=== PATIENT | female | born 1950 | race Caucasian/White ===

== ENCOUNTER 2016-12-04 18:43 | Inpatient (IN) | payer OTHER, MEDICARE ==
[~2016-12-04] VITALS: Ht 162.6 cm; Wt 79.3 kg
[~2016-12-04 18:43] MED LIST: ALPRAZOLAM0.5 MG PO; CETI10TA18 PO; CITA40TA PO; ERGO400C PO; SIMV40TA5 PO
[2016-12-04 19:12] VITALS: BP 127/81; PULSE 103; RESP 16; O2SAT 97
[2016-12-04] MEDS ORDERED: 0.9% Sodium Chloride 1,000 ML IV ONE (19:47)
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
[2016-12-04] MEDS ORDERED: Ondansetron 2 mg/mL 2 mL Inj IVPUSH ONE (19:50)
[2016-12-04 20:36] LABS: BASOPHILS % (AUTO) 0.5 % (0-3); EOSINOPHILS % (AUTO) 2.6 % (0-5); MONOCYTES % (AUTO) 8.5 % (4-12); Mean Corpuscular Hemoglobin 30.4 pg (27.0-35.0); Mean Corpuscular Volume 92.2 fL (81-100); NEUTROPHILS % (AUTO) 49.3 % (40-74); Platelet Count 293 bil/L (150-400)
[2016-12-04 20:49] LABS: INR 0.95 ratio
[2016-12-04 21:10] VITALS: BP 116/92; PULSE 90; RESP 20; O2SAT 96
[2016-12-04 22:40] VITALS: BP 99/50; PULSE 87; RESP 20; O2SAT 97
[2016-12-04] MEDS ORDERED: Ondansetron 2 mg/mL 2 mL Inj IVPUSH PRN (23:05)
[2016-12-04] MEDS ORDERED: Alum-Mag Hydrox-Simeth 30 mL Suspension PO PRN (23:05)
[2016-12-04 23:35] VITALS: BP 109/86; PULSE 100
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
[2016-12-05] MEDS ORDERED: Alum-Mag Hydrox-Simeth 30 mL Suspension PO PRN (00:25)
[2016-12-05] MEDS ORDERED: Polyethylene Glycol (PEG) 17 Gm Powder PO PRN (00:25)
[2016-12-05] MEDS ORDERED: Insulin GLARgine 100 Unit/mL Syringe SUBQ ONE (00:25)
[2016-12-05 01:12] VITALS: BP 115/73; PULSE 71; RESP 20; O2SAT 94
[2016-12-05] MEDS: Ondansetron 2 mg/mL 2 mL Inj IVPUSH PRN ×2 (01:22→04:21)
[2016-12-05] MEDS: 0.9% Sodium Chloride 1,000 ML IV SCH ×3 (01:24→22:07)
[2016-12-05] MEDS: Heparin 5,000 Unit/mL Inj SUBQ SCH ×3 (01:26→18:28)
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
[2016-12-05 02:06] LABS: APPEARANCE,URINE CLEAR (CLEAR,HAZY); COLOR,URINE YELLOW (YELLOW); OCCULT BLOOD,URINE TRACE (NEGATIVE); PH,URINE 5.5 (5.0-8.0); UROBILINOGEN,URINE NORMAL (NORMAL)
--- NOTE | 2016-12-05 02:17 | NUR ---
Admit Pt alert and oriented x3. Able to answer questions and provide H&P. Repeat K was 3.9. made aware of not giving Lantus and D50 for potassium reversal order. Morphine given for pain with effectiveness noted. Zofran for nausea. Pt aware of npo and few ice chips for diet at this time. Addendum: 12/05/16 at 0409 by RICHMOND PHELPS RN Med rec not done. Pt unsure of some of her Meds name and doses.
--- NOTE | 2016-12-05 04:09 | NUR ---
Pain Pt c/o abd pain and Morphine given with effectiveness. C/o nausea and Zofran given with effectiveness noted. No bm at this time. Oriented to self, place and time. Addendum: 12/05/16 at 0650 by RICHMOND PHELPS RN Anxiety Pt was anxious tonight. Xanax given as requested. Pt noted to get umana at times. Explained and provided education about the plan for tonight. Pt expressed frustration about her answering her H&P and not being able to look up her meds and info from the "[facility]". Answered pt's questions appropriately as possible.
[2016-12-05] MEDS: ALPRAZolam 0.25 mg Tablet PO SCH ×3 (04:19→19:56)
[2016-12-05 05:58] VITALS: BP 131/80; PULSE 96; RESP 19; O2SAT 96
[2016-12-05 06:40] LABS: BASOPHILS % (AUTO) 0.4 % (0-3); EOSINOPHILS % (AUTO) 3.1 % (0-5); MONOCYTES % (AUTO) 6.9 % (4-12); Mean Corpuscular Hemoglobin 30.4 pg (27.0-35.0); Mean Corpuscular Volume 93.6 fL (81-100); NEUTROPHILS % (AUTO) 39.5 % (40-74); Platelet Count 272 bil/L (150-400)
[2016-12-05 10:16] VITALS: BP 119/79; PULSE 97; RESP 16; O2SAT 97
--- NOTE | 2016-12-05 10:33 | PCM.PNSURG ---
Subjective Date of Service: Dec 05, 2016 Date of Service: Dec 05, 2016 Visit Information: Reason for Visit Intussusception Date of Admission: Dec 05, 2016 at 00:28 Hospital Day #2 Subjective: Patient seen sitting up in bed, appears comfortable. She states that the pain in the abdomen is improved since yesterday, but still present. It is not constant, but is sharp and stabbing on an intermittent basis and located in the right upper quadrant. She states that she has not really eaten solid food since November 27 and is feeling hungry today. She is passing flatus and states that her last solid BM was 2 days ago. Some brice/green fluid came out of her rectum yesterday prior to the CT scan. No blood in her stools recently. She had some nausea without emesis last night which was resolved with Zofran. Objective Vital Sign- Last 8 Hours Date Time Temp Pulse Resp B/P Pulse Ox O2 Delivery O2 Flow Rate FiO2 12/05/16 05:58 36.4 96 19 131/80 96 Room Air Intake and Output- Last 8 Hour 12/05/16 Cumulative From/Thru 07:00 12/04/16 19:12 - 12/05/16 06:39 Intake Total 1000 ml Output Total 500 ml 500 ml Balance -500 ml 500 ml Intake IV Total 1000 ml Output Urine Total 500 ml 500 ml General: Alert, Oriented X3, Cooperative, No Acute Distress Lungs: Clear to Auscultation Heart: Regular Rate/Rhythm Abdomen: Soft, Non-distended, Other (tender to palpation in the right brandy- umbilical region. No rebound or guarding. No masses appreciated. No tympany) Extremities: Warm, Thigh&Calf Soft/Nontender Neuro: Normal Speech Catheters: None Result Diagram: 12/05/16 0605 12/05/16 06 Assessment & Plan Impression Primary diagnosis: Abdominal pain, unclear etiology. Question of intussusception on CT scan. Other diagnoses: Status post colonoscopy by Dr. Charles Vasquez June 2014 Status post upper endoscopy by Dr. Charles Vasquez January 2010 and October 2009 History of ERCP 03/31/[address] Jeff Leone [facility] in [place] History of Pedro-en-Y duodenojejunostomy and duodenotomy by Dr. Joshua Farrell 04/24/1999 at [facility] in [place] History of laparoscopic cholecystectomy with intraoperative cholangiogram by Dr. Joshua Farrell 02/12/1997 at [facility] in [place] Anxiety disorder with depression Osteoporosis Left hip arthralgia Bartholin's gland duct cyst Probable IBS Mitral regurgitation Mitral valve prolapse COPD Hyperlipidemia PTSD TMJ PAD Hypertension GERD Hyperplastic lymph node Status post total abdominal hysterectomy bilateral salpingo-oophorectomy Tobacco use daily Problems: Plan Discussed with Dr. James. Since pain is improving, we will allow her small sips of clear fluids today. If nausea returns or abdominal pain increases, we will resume nothing by mouth status and recommend repeat abdominal/pelvis CT scan. Records are found in [facility] detailing the operations by Dr. Joshua Farrell at [facility] in [place] in 1996 and 1998 and will be placed in her physical chart. History of Pedro-en-Y duodenojejunostomy and duodenotomy 04/24/1999 History of ERCP by Dr. Jeff Leone 03/31/1999 History of laparoscopic cholecystectomy with intraoperative cholangiogram VTE Prophylaxis: Sub-Q Heparin (Unfractionated) Resuscitation Status: CPR: Attempt Resuscitation (Only 3 days of intubation) Cornelia Rivera PA-C Dec 05, 2016 10:33
[2016-12-05] MEDS ORDERED: EZET10TA PO (10:37)
[2016-12-05] MEDS ORDERED: ALPR0.5T8 PO (10:37)
[2016-12-05] MEDS ORDERED: LISI1TAB7 PO (10:37)
[2016-12-05 14:17] VITALS: BP 110/74; PULSE 92; RESP 17; O2SAT 95
[2016-12-05 16:51] VITALS: BP 112/76; PULSE 85; RESP 18; O2SAT 98
--- NOTE | 2016-12-05 18:35 | NUR ---
PAIN Patient requested clarification of care, PA able to speak with her and answer questions. Anxiety levels absent after meeting. Patient requesting no pain medications as the ASE, i.e. headache, was worse than the pain. Patient denies pain at this time.
--- NOTE | 2016-12-05 19:32 | PCM.PNMED ---
Subjective Date of Service Dec 05, 2016 Subjective reports some flatus but no BM Exam Vital Signs Vital Sign - Last Date Time Temp Pulse Resp B/P Pulse Ox O2 Delivery O2 Flow Rate FiO2 12/05/16 16:51 36.8 85 18 112/76 98 Room Air Intake and Output 12/04/16 12/04/16 12/05/16 Cumulative From/Thru 15:00 23:00 07:00 12/04/16 19:12 - 12/05/16 06:39 Intake Total 1000 ml 1000 ml Output Total 500 ml 500 ml Balance 1000 ml -500 ml 500 ml IV Total 1000 ml 1000 ml Output Urine Total 500 ml 500 ml General: Alert, Cooperative, No Acute Distress Eyes: Scleral Anicteric Mouth: Mucous Membr Moist/[place] Neck: Supple Chest & Lungs: Chest Wall Normal, Clear to auscultation & percussion Cardiovascular: Regular Rate/Rhythm Abdomen: Non-tender, Soft, Other (decreased bowel tones) Extremities: No cyanosis/clubbing/edma bilat Neurological: Grossly Neurologically Intact, Normal Speech IVs and Medications Medications Reviewed: Medications were reviewed in detail Lab and Diagnostics Result Diagram: 12/05/1660412/05/16 0605 X-Rays, CTs and MRIs Date of Service: 12/04/16 1306 PROCEDURE: CT ABDOMEN AND PELVIS WITH CONTRAST ([facility]-[id number]) INDICATIONS: GENERALIZED ABDOMINAL PAIN TECHNIQUE: After the administration of oral and intravenous contrast, 5 mm thick sections acquired from the diaphragms to the symphysis. 5 mm thick coronal and sagittal reformats were performed. For radiation dose reduction, the following was used : automated exposure control, adjustment of mA and/or kV according to patient size. COMPARISON: [facility] [place] , CT, ABD/PELVIS W/CON ([facility]), 09/28/2009 , 15:08. FINDINGS: Image quality: Excellent. ABDOMEN: Lung bases: Lung bases are clear. Heart size is normal. Solid organs: Liver and spleen are normal in size and enhancement. Gallbladder is unremarkable. Biliary system is non-dilated. Pancreas enhances normally. No adrenal nodules. Kidneys are normal in size and enhancement, without hydronephrosis. Peritoneum and bowel: The stomach is decompressed. The duodenum and first portion of the jejunum demonstrate normal caliber and wall thickness. There is a small bowel-small bowel intussusception within the distal jejunum. No focal mass lesion is visualized. No perienteric fat stranding or free fluid. Contrast is present within the decompressed ileum. The appendix is not visualized; however there is no discrete right lower quadrant fluid or fat stranding to suggest acute appendicitis. The colon demonstrates normal caliber and wall thickness throughout. Nodes and vessels: No retroperitoneal or mesenteric adenopathy. Aorta and inferior vena cava are normal in caliber. There are scattered atheromatous calcifications throughout the aorta and iliac arteries bilaterally. Miscellaneous: No ventral hernias. PELVIS: Genitourinary: Bladder wall thickness is normal. Miscellaneous: No inguinal hernias or adenopathy. Bones: No suspicious bony lesions. No vertebral body compression fractures. IMPRESSION: 1. Small bowel-small bowel intussusception in the right lower quadrant. This may be the etiology of the patient's pain. Although this may be a transient incidental finding, intussusception in the adult population can also be associated with a bowel mass. Neoplasm cannot be excluded, and further characterization is warranted. There are no discrete findings to suggest ischemia; however laboratory values are recommended to exclude early bowel ischemia. This finding was discussed with Dr. Woods at 3:38 PM on 12/04/16. Dictated by: Esther Méndez M.D. on 12/04/2016 at 15:41 . Assessment & Plan 66 year-old female who has had years of abdominal discomfort and diarrhea with surgical intervention, who presented to the ED per her PCP's instructions after having a CT scan done earlier in the day (12/04/16) that showed intussusception. # Acute abdominal , present on admission. improving - CT report of 12/04/16: "small bowel intussusception in the right lower quadrant " - appreciate surgery consult. will f/u w/ recs - c/w supportive care - further advancing of diet per surgery recs - encourage ambulation # Hyperkalemia, present on admission, acute - Resolved - Likely reported incorrectly because repeat potassium was normal prior to giving any treatment Chronic, present on admission diagnoses: # CHO: 2008 - Mitral regurgitation, Mitral valve prolapse. Assume stable. # COPD, does not use oxygen. Assume stable # Panic disorder, stable - continue Xanax # Hyperlipidemia, - continue home medication when able to tolerate PO # PTSD, stable - continue Xanax # Hypertension, stable - c/w home meds # Tobacco use disorder, - nicotine patch Dispo: 1-2 days GI Prophylaxis: Proton Pump Inhibitor VTE Prophylaxis: Sub-Q Heparin (Unfractionated) Resuscitation Status: CPR: Attempt Resuscitation (Only 3 days of intubation) Time spent 25 min Richard Ortiz Dec 05, 2016 19:32
[2016-12-05 20:50] VITALS: BP 114/76; PULSE 56; RESP 17; O2SAT 97
[2016-12-06] MEDS: Heparin 5,000 Unit/mL Inj SUBQ SCH ×3 (01:50→16:52)
--- NOTE | 2016-12-06 02:28 | NUR ---
activity pt had stomach pain that she rated a 5/10 after eating her dinner. she stated that it was because she tried to eat the chocolate pudding and "chocolate has never agreed with me". she said it was only gas pain. she denied the need for pain medication. the upper right quadrant was very hyperactive when she was complaining of pain. upon reassessment she denied pain. she says she is tolerating fluids without any pain and would like to try and eat other things now. she ambulated in the hallway once before bed. she complained of an increase in anxiety she said she believed it was because she felt better now and was "antsy to go home". she took her HS xanax and it appeared effective. pt has slept most of the night without incident. care continues.
[2016-12-06] MEDS: ALPRAZolam 0.25 mg Tablet PO SCH ×2 (06:10→17:30)
[2016-12-06 06:18] VITALS: BP 124/78; PULSE 91; RESP 20; O2SAT 96
[2016-12-06] MEDS: 0.9% Sodium Chloride 1,000 ML IV SCH ×2 (06:24→16:24)
--- NOTE | 2016-12-06 06:59 | NUR ---
anxiety pt had severe anxiety this AM. she said she could not sit still and being "stuck here" made her want to run. she was taken for a walk around the unit but she said she needed her cigarettes and her xanax. pt was given her morning xanax and nicotine patch was applied. pt stated almost immediate relief. she is currently sleeping. hourly rounding continues.
[2016-12-06 07:36] LABS: BASOPHILS % (AUTO) 0.3 % (0-3); MONOCYTES % (AUTO) 6.7 % (4-12); Mean Corpuscular Hemoglobin 30.3 pg (27.0-35.0); Mean Corpuscular Volume 93.2 fL (81-100); NEUTROPHILS % (AUTO) 56.7 % (40-74); Platelet Count 262 bil/L (150-400)
[2016-12-06 09:45] VITALS: BP 111/69; PULSE 93; RESP 16; O2SAT 96
--- NOTE | 2016-12-06 11:58 | PCM.PNMED ---
Subjective Date of Service Dec 06, 2016 Subjective denies any new issues/complaints Exam Vital Signs Vital Sign - Last Date Time Temp Pulse Resp B/P Pulse Ox O2 Delivery O2 Flow Rate FiO2 12/06/16 09:45 36.6 93 16 111/69 96 Room Air Intake and Output 12/05/16 12/05/16 12/06/16 Cumulative From/Thru 15:00 23:00 07:00 12/04/16 19:12 - 12/06/16 06:43 Intake Total 2733 ml 1235 ml 4968 ml Output Total 1200 ml 1700 ml Balance 2733 ml 35 ml 3268 ml Intake Oral 1100 ml 400 ml 1500 ml IV Total 1633 ml 835 ml 3468 ml Output Urine Total 1200 ml 1700 ml # Voids 5 5 Exam General: Alert, Cooperative, No Acute Distress Eyes: Scleral Anicteric Mouth: Mucous Membr Moist/[place] Neck: Supple Chest & Lungs: Chest Wall Normal, Clear to auscultation bilat Cardiovascular: Regular Rate/Rhythm Abdomen: Non-tender, Soft Extremities: No cyanosis/clubbing/edema bilat Neurological: Grossly Neurologically Intact, Normal Speech IVs and Medications Medications Reviewed: Medications were reviewed in detail Lab and Diagnostics Result Diagram: 12/06/16 0720 12/06/16 0720 X-Rays, CTs and MRIs Date of Service: 12/04/16 1306 PROCEDURE: CT ABDOMEN AND PELVIS WITH CONTRAST ([id number]) INDICATIONS: GENERALIZED ABDOMINAL PAIN TECHNIQUE: After the administration of oral and intravenous contrast, 5 mm thick sections acquired from the diaphragms to the symphysis. 5 mm thick coronal and sagittal reformats were performed. For radiation dose reduction, the following was used : automated exposure control, adjustment of mA and/or kV according to patient size. COMPARISON: [facility] [place] , CT, ABD/PELVIS W/CON ([facility]), 09/28/2009 , 15:08. FINDINGS: Image quality: Excellent. ABDOMEN: Lung bases: Lung bases are clear. Heart size is normal. Solid organs: Liver and spleen are normal in size and enhancement. Gallbladder is unremarkable. Biliary system is non-dilated. Pancreas enhances normally. No adrenal nodules. Kidneys are normal in size and enhancement, without hydronephrosis. Peritoneum and bowel: The stomach is decompressed. The duodenum and first portion of the jejunum demonstrate normal caliber and wall thickness. There is a small bowel-small bowel intussusception within the distal jejunum. No focal mass lesion is visualized. No perienteric fat stranding or free fluid. Contrast is present within the decompressed ileum. The appendix is not visualized; however there is no discrete right lower quadrant fluid or fat stranding to suggest acute appendicitis. The colon demonstrates normal caliber and wall thickness throughout. Nodes and vessels: No retroperitoneal or mesenteric adenopathy. Aorta and inferior vena cava are normal in caliber. There are scattered atheromatous calcifications throughout the aorta and iliac arteries bilaterally. Miscellaneous: No ventral hernias. PELVIS: Genitourinary: Bladder wall thickness is normal. Miscellaneous: No inguinal hernias or adenopathy. Bones: No suspicious bony lesions. No vertebral body compression fractures. IMPRESSION: 1. Small bowel-small bowel intussusception in the right lower quadrant. This may be the etiology of the patient's pain. Although this may be a transient incidental finding, intussusception in the adult population can also be associated with a bowel mass. Neoplasm cannot be excluded, and further characterization is warranted. There are no discrete findings to suggest ischemia; however laboratory values are recommended to exclude early bowel ischemia. This finding was discussed with Dr. Woods at 3:38 PM on 12/04/16. Dictated by: Esther Méndez M.D. on 12/04/2016 at 15:41 . Assessment & Plan 66 year-old female who has had years of abdominal discomfort and diarrhea with surgical intervention, who presented to the ED per her PCP's instructions after having a CT scan done earlier in the day (12/04/16) that showed intussusception. # Acute abdominal , present on admission. improving - CT report of 12/04/16: "small bowel intussusception in the right lower quadrant " - appreciate surgery consult. will f/u w/ recs - f/u repeat CT abd today - c/w supportive care - further advancing of diet per surgery recs - encourage ambulation # Hyperkalemia, present on admission, acute - Resolved - Likely reported incorrectly because repeat potassium was normal prior to giving any treatment Chronic, present on admission diagnoses: # CHO: 2008 - Mitral regurgitation, Mitral valve prolapse. Assume stable. # COPD, does not use oxygen. Assume stable # Panic disorder, stable - continue Xanax # Hyperlipidemia, - continue home medication when able to tolerate PO # PTSD, stable - continue Xanax # Hypertension, stable - c/w home meds # Tobacco use disorder, - nicotine patch Dispo: 1-2 days pending GI issues noted above GI Prophylaxis: Proton Pump Inhibitor VTE Prophylaxis: Sub-Q Heparin (Unfractionated) Resuscitation Status: CPR: Attempt Resuscitation (Only 3 days of intubation) Time spent 25 min Richard Ortiz Dec 06, 2016 11:58
[2016-12-06 13:30] VITALS: BP 98/63; PULSE 94; RESP 18; O2SAT 94
--- NOTE | 2016-12-06 13:30 | DRSVH ---
PROCEDURE: CT ABDOMEN AND PELVIS WITH CONTRAST ([id number]) INDICATIONS: follow up CT for SB abnormality/intussussception TECHNIQUE: After the administration of oral and intravenous contrast, 5 mm thick sections acquired from the diap hragms to the symphysis. 5 mm thick coronal and sagittal reformats were performed. For radiation do se reduction, the following was used: automated exposure control, adjustment of mA and/or kV accordi ng to patient size. COMPARISON: [facility], CT, ABD/PELVIS W/CON ([facility]), 09/02/2009, 15:16. [facility], CT, CT ABD PELVIS W CON, 12/04/2016, 14:44. FINDINGS: Image quality: Excellent. ABDOMEN: Lung bases: Pulmonary scar is present at the lingular base unchanged from the study dated 09/02/09. T here is mild atelectasis in the dependent lungs bilaterally. No pleural effusion. Heart is normal siz e. There is a small hiatal hernia. Solid organs: Liver and spleen are normal in size and enhancement. Gallbladder is surgically absent . Biliary system is non-dilated. Pancreas enhances normally. No adrenal nodules. Kidneys are norm al in size and enhancement, without hydronephrosis. Peritoneum and bowel: Stomach, small bowel, and colon loops are normal in caliber and wall thickness . The appendix is nonvisualized. The small bowel-small bowel intussusception visualized on the compar michelle study dated 12/04/16 has resolved. There are no findings to suggest discrete bowel mass or mucosa l thickening. No pneumatosis or pneumoperitoneum. No free fluid or air. Nodes and vessels: No retroperitoneal or mesenteric adenopathy. Aorta and inferior vena cava are no rmal in caliber. There are scattered atheromatous calcifications throughout the aorta and iliac clair karolina bilaterally. Miscellaneous: No ventral hernias. PELVIS: Genitourinary: Bladder wall thickness is normal. Miscellaneous: No inguinal adenopathy. There are small bilateral fat-containing inguinal hernias. Bones: No suspicious bony lesions. No vertebral body compression fractures. IMPRESSION: Resolution of the small bowel-small bowel intussusception visualized on the study from . No findings to suggest residual inflammation, ischemia, or bowel mass. Dictated by: Esther Méndez M.D. on 12/06/2016 at 13:28 Approved by: Esther Méndez M.D. on 12/06/2016 at 13:28
--- NOTE | 2016-12-06 14:05 | PROG NOTE ---
[address] [address] PROGRESS NOTE PATIENT: JOEY GALLEGOS : 1950 MR#: [id number] ADMIT: 12/05/2016 JOB ID: [id number] DATE: 12/06/2016 The patients symptoms have largely resolved, but she is still a bit uncomfortable. I repeated her CT scan, which demonstrated resolution of the small bowel intussusception seen on the previous CT scans, confirming that this was a transient phenomenon and likely not the cause of her right-sided abdominal pain. My recommendation would be to advance her diet and let her be discharged with followup as an outpatient. She may want to pursue followup colonoscopy, though she did have a colonoscopy just a few years ago that was relatively unrevealing.
--- NOTE | 2016-12-06 18:42 | NUR ---
ANXIETY Patient expressing s/s of anxiety, however easily redirected with reassurance and actively listening. New orders to increase Xanax from 0.25mg to 0.50mg, patient stated "Oh, two pills, I'm going to pocket one of them for later." This nurse explained that medications are to be taken at time of administration, she is able to refuse any portion of the medication at that time, but not able to split dose over a span of time between administrations.
[2016-12-06 19:57] VITALS: BP 115/76; PULSE 94; RESP 16; O2SAT 95
[2016-12-07] MEDS: Heparin 5,000 Unit/mL Inj SUBQ SCH ×2 (00:31→08:35)
[2016-12-07] MEDS: 0.9% Sodium Chloride 1,000 ML IV SCH (02:24)
--- NOTE | 2016-12-07 04:24 | NUR ---
activity pt has denied any abdominal pain this shift. she has denied N/V/D. tolerating general diet. she has complained of common cold symptoms. she has a slight sore through and moist sounding cough. she was given warm tea which effectively reduced her throat irritation and coughing. pt is afebrile and VSS. care continues.
[2016-12-07 05:09] VITALS: BP_SYST 145; BP_SYST 150; BP_DIAS 79; BP_DIAS 80; PULSE 96; RESP 17; O2SAT 96
[2016-12-07] MEDS: ALPRAZolam 0.25 mg Tablet PO SCH (05:58)
[2016-12-07] MEDS ORDERED: NICO1PAT6 TOPICAL (08:09)
--- NOTE | 2016-12-07 08:12 | PCM.DIMED ---
Discharge Instructions Date of Service Dec 07, 2016 Dates of Hospitalization Dec 05, 2016 at 00:28 Discharge Diagnosis Discharge Diagnosis small bowel intussusception, spontaneously resolved Diet No restrictions Activity No restrictions Call your provider Other Patient Instructions You were hospitalized with abdominal pain, found to have telescoping of your small intestines, which seemed resolved on repeat CT scan. Please follow up with your doctor in 2weeks, possibly repeat colonoscopy in near future. Follow-up plan follow up with your pcp Follow-up Provider: Isaac Woods DO Follow-up with PCP in: 2 weeks Gale Paniagua MD Dec 07, 2016 08:12
--- NOTE | 2016-12-07 11:52 | NUR ---
Discharge Patient DC home with . All DC education and instructions given to patient at time of DC. IV access removed intact with no s/s of infection. Smoking cessation education given to patient prior to DC both verbally and educational handouts.
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
== END 2016-12-07 11:20 | disposition home or self-care (01) | DRG 390 ==
LOC: SED 18:43 → OSC 12-05 00:28 → SOU 12-06 08:34 → OSC 12-06 08:40
PROVIDERS: ADMIT Internal Medicine; ATTEND Internal Medicine
DX: K56.1 Intussusception (principal); J44.9 Chronic obstructive pulmonary disease, unspecified; I34.0 Nonrheumatic mitral (valve) insufficiency; K21.9 Gastro-esophageal reflux disease without esophagitis; F17.210 Nicotine dependence, cigarettes, uncomplicated; E87.5 Hyperkalemia; F41.0 Panic disorder [episodic paroxysmal anxiety]; F43.10 Post-traumatic stress disorder, unspecified; Z90.49 Acquired absence of other specified parts of digestive tract